=== PATIENT | male | born 1995 | race Caucasian/White ===

== ENCOUNTER → 2017-03-11 | Outpatient (CLI) | payer OTHER ==
--- NOTE | 2017-03-13 10:40 | DI ---
Indication: [email or web address].[email or web address]: DX TESTING PROCEDURE: KNEE RIGHT 2 VIEW: Encounter: Initial Comparison: None Findings: There is no acute fracture, dislocation or malalignment identified. Joint spaces are normal. No degenerative changes seen. No joint effusion. Impression: Normal exam .
--- NOTE | 2017-03-13 10:40 | DI ---
Indication: [email or web address].[email or web address]: DX TESTING PROCEDURE: LUMBAR SPINE 3 VIEWS: Encounter: Initial Comparison: None Findings: Alignment of the lumbar spine is within normal limits. No acute fracture or subluxation. No significant disk space narrowing or degenerative change. Impression: No acute osseous abnormality. .
--- NOTE | 2017-03-13 10:41 | DI ---
Indication: ITS.[email or web address]: DX TESTING PROCEDURE: KNEE LEFT 2 VIEW: Encounter: Initial Comparison: None Findings: There is no acute fracture, dislocation or malalignment identified. Joint spaces are normal. No joint effusion or degenerative change. Impression: Normal exam .
--- NOTE | 2017-03-13 10:42 | DI ---
Indication: ITS.REASON: DX TESTING PROCEDURE: SHOULDER RIGHT 3 VIEWS: Encounter: Initial Comparison: None Findings: There is no acute fracture, dislocation or malalignment identified. Acromioclavicular and glenohumeral joint spaces are normal. Impression: Normal exam .
--- NOTE | 2017-03-13 10:42 | DI ---
Indication: ITS.REASON: DX TESTING PROCEDURE: THORACIC SPINE 2 VIEW: Encounter: Initial Comparison: None Findings: Alignment of the thoracic spine is normal. No acute fracture or subluxation. No degenerative change appreciated. Impression: Normal exam. .
--- NOTE | 2017-03-13 10:42 | DI ---
Indication: ITS.REASON: DX TESTING PROCEDURE: HIP BILATERAL 2 VIEW: Encounter: Initial Comparison: None Findings: Left hip: No acute fracture or dislocation. Hip joint space is normal. Pubic symphysis is intact. No degenerative changes seen. Right hip: No acute fracture or dislocation. Hip joint space is normal. No degenerative changes seen. Impression: Left hip: Normal exam Right hip: Normal exam .
== END ==
LOC: IMA 16:24
DX: Z02.89 Encounter for other administrative examinations (principal)